=== PATIENT | female | born 1995 | race Caucasian/White ===

== ENCOUNTER 2018-01-12 10:50 | Emergency (ER) | payer OTHER ==
[~2018-01-12] VITALS: Ht 167.6 cm; Wt 68.0 kg
[2018-01-12 10:51] VITALS: BP 119/84
--- NOTE | 2018-01-12 10:59 | ED GENERAL ADULT ---
History of Present Illness General Chief Complaint: Animal/Insect Bite Stated Complaint: 3RD RABIES VACCINE Source: patient, old records Exam Limitations: no limitations Vital Signs & Intake/Output Vital Signs & Intake/Output Vital Signs Date Time Temp Pulse Resp B/P B/P Pulse O2 O2 Flow FiO2 Mean Ox Delivery Rate 01/12 1051 98.0 100 20 119/84 98 Room Air Allergies Coded Allergies: No Known Allergies (01/05/18) Triage Note: PT TO ED FOR THIRD RABIES VACCINE. Triage Nurses Notes Reviewed? yes : No Patient currently breastfeeds: No HPI: Patient presents for her third rabies vaccine. There are no problems with the first 2 injections. Past History Travel History Traveled to [place] past 21 day No Medical History Any Pertinent Medical History? none Surgical History Surgical History: non-contributory Psychosocial History What is your primary language Welsh Tobacco Use: Never used ETOH Use: denies use Illicit Drug Use: denies illicit drug use Family History Hx Contributory? No Review of Systems Review of Systems Constitutional: Reports: no symptoms. Respiratory: Reports: no symptoms. Cardiovascular: Reports: no symptoms. Musculoskeletal: Reports: no symptoms. Immunologic/Allergic: Reports: no symptoms. Physical Exam Physical Exam General Appearance: well developed/nourished, no apparent distress, alert, awake Eyes: Bilateral: PERRL, EOMI. Respiratory: normal breath sounds, chest non-tender, no respiratory distress, lungs clear Cardiovascular: regular rate/rhythm, normal peripheral pulses Neurologic/Psych: no motor/sensory deficits, awake, alert, oriented x 3, normal gait, normal mood/affect Core Measures ACS in differential dx? No CVA/TIA Diagnosis: No Sepsis Present: No Sepsis Focused Exam Completed? No Progress Differential Diagnoses I considered the following diagnoses in my evaluation of the patient: [Third rabies vaccine] Plan of Care: Current Medications Sig/Joshua Start time Last Medication Dose Stop Time Status Admin Rabies Vaccine 1 SYR ONCE ONE 01/12 1100 AC (Rabies (Vaccine) 01/12 1101 Inj (1ML)) Initial ED EKG: none Departure Departure Disposition: HOME OR SELF CARE Condition: Stable Clinical Impression Primary Impression: Encounter for prophylactic rabies immune globin Referrals: Mireya MARTIN,Rocky Bernal (PCP/Family) Additional Instructions: RETURN IN 1 WEEK FOR YOUR FINALSHOT OR SOONER FOR ANY CONCERNS Departure Forms: Customer Survey General Discharge Information Critical Care Note Critical Care Note Critical Care Time: non-applicable
== END 2018-01-12 11:01 ==
LOC: ERH 10:50
DX: Z20.3 Contact with and (suspected) exposure to rabies (principal)
CPT/HCPCS: 90471; 99281

== ENCOUNTER 2018-01-19 18:08 | Emergency (ER) | payer OTHER ==
--- NOTE | 2018-01-19 18:13 | ED GENERAL ADULT ---
History of Present Illness General Chief Complaint: General Adult Stated Complaint: RABIS SHOT Source: patient Exam Limitations: no limitations Vital Signs & Intake/Output Vital Signs & Intake/Output Vital Signs Date Time Temp Pulse Resp B/P B/P Pulse O2 O2 Flow FiO2 Mean Ox Delivery Rate 01/19 1827 98.2 66 16 125/79 99 Room Air Allergies Coded Allergies: No Known Allergies (01/05/18) Triage Nurses Notes Reviewed? yes Onset: Abrupt Duration: day(s): Timing: recent history Injury Environment: home HPI: 22-year-old female comes into the emergency room for last rabies vaccine. She had been exposed to a bat flying around in the room. Denies any bites. Denies any other associated symptoms. (Juan Johnson) Past History Travel History Traveled to [place] past 21 day No Medical History Any Pertinent Medical History? none Surgical History Surgical History: non-contributory Psychosocial History What is your primary language Zimbabwean Family History Hx Contributory? No (Juan Johnson) Review of Systems Review of Systems Constitutional: Reports: no symptoms. EENTM: Reports: no symptoms. Respiratory: Reports: no symptoms. Cardiovascular: Reports: no symptoms. GI: Reports: no symptoms. Genitourinary: Reports: no symptoms. Musculoskeletal: Reports: no symptoms. Skin: Reports: no symptoms. Neurological/Psychological: Reports: no symptoms. Hematologic/Endocrine: Reports: no symptoms. Immunologic/Allergic: Reports: no symptoms. All Other Systems: Reviewed and Negative (Juan Johnson) Physical Exam Physical Exam General Appearance: well developed/nourished, alert, awake Head: atraumatic Eyes: Bilateral: normal appearance. Ears, Nose, Throat: normal ENT inspection Neck: normal inspection Respiratory: no respiratory distress Extremities: no edema Neurologic/Psych: awake, alert Skin: intact, normal color Core Measures ACS in differential dx? No CVA/TIA Diagnosis: No Sepsis Present: No Sepsis Focused Exam Completed? No (Juan Johnson) Progress Differential Diagnoses I considered the following diagnoses in my evaluation of the patient: Rabies, allergic reaction, Plan of Care: Current Medications Sig/Joshua Start time Last Medication Dose Stop Time Status Admin Rabies Vaccine 1 SYR ONCE ONE 01/19 1815 UNVr (Rabies (Vaccine) 01/20 1816 Inj (1ML)) Initial ED EKG: none (Juan Johnson) Departure Departure Disposition: HOME OR SELF CARE Condition: Stable Clinical Impression Primary Impression: Need for post exposure prophylaxis for rabies Referrals: Mireya MARTIN,Rocky Bernal (PCP/Family) Additional Instructions: Return if any other concerns worsening symptoms. Departure Forms: Customer Survey General Discharge Information (Juan Johnson) PA/NURSE CASE MANAGER Co-Sign Statement Statement: ED Attending supervision documentation- [] I saw and evaluated the patient. I have also reviewed all the pertinent lab results and diagnostic results. I agree with the findings and the plan of care as documented in the PA's/NURSE CASE MANAGER's documentation. [x] I have reviewed the ED Record and agree with the PA's/NURSE CASE MANAGER's documentation. [] Additions or exceptions (if any) to the PAs/NURSE CASE MANAGER's note and plan are summarized below: [] (Jim MARTIN,Dionte Bernal) Critical Care Note Critical Care Note Critical Care Time: non-applicable (Juan Johnson)
[2018-01-19 18:27] VITALS: BP 125/79
== END 2018-01-19 18:32 ==
LOC: ERH 18:08
DX: Z23 Encounter for immunization (principal); Z20.3 Contact with and (suspected) exposure to rabies
CPT/HCPCS: 90471